=== PATIENT | female | born 1955 | race Caucasian/White ===

== ENCOUNTER 2019-08-04 08:36 | Outpatient (CLI) | payer BC ==
--- NOTE | 2019-08-04 10:34 | RAD ---
RIGHT KNEE 4 VIEWS: Date: 08/04/2019 HISTORY: Knee pain. FINDINGS: The medial and lateral joint spaces appear maintained. Mild degenerative change. Minimal marginal spu rring and minimal spurring from the tibial spines. Mild spurring from the posterior patella. There is evidence of joint effusion with fullness in the suprapatellar region. No acute osseous abnor mality identified. IMPRESSION: Very mild degenerative change. Evidence of joint effusion. POS: [facility]W
== END 2019-08-04 08:37 | disposition home or self-care (01) ==
LOC: MADRAD 08:36
PROVIDERS: ATTEND Physician Assistant
DX: M25.561 Pain in right knee (principal); M25.461 Effusion, right knee; M17.11 Unilateral primary osteoarthritis, right knee